=== PATIENT | female | born 1945 | race Caucasian/White ===

== ENCOUNTER 2023-03-27 07:37 | Observation (INO) | payer OTHER ==
[2023-03-22 10:49] LABS: BILIRUBIN,URINE NEGATIVE (Neg); CLARITY,URINE SLIGHTLY CLOUDY (Clear); COLOR,URINE YELLOW (Yellow); GLUCOSE, URINE NEGATIVE (Neg); KETONES,URINE NEGATIVE (Neg); LEUKOCYTE ESTERASE ,URINE TRACE (Neg); NITRITES, URINE NEGATIVE (Neg); OCCULT BLOOD,URINE NEGATIVE (Neg); PH,URINE 5.5 (4.8-8.0); PROTEIN,URINE NEGATIVE (Neg); UROBILINOGEN,URINE 0.2 E.U/dL (0.2-1.0)
[2023-03-22 10:50] LABS: UA COLLECTION TYPE NON-SPECIFIED
[2023-03-22 10:54] LABS: BASOPHILS % (AUTO) 0.5 % (0-1); EOSINOPHILS # (AUTO) 0.1 X10'3 (0-0.9); EOSINOPHILS % (AUTO) 1.3 % (0-6); LYMPHOCYTES # (AUTO) 1.7 X10'3 (1.1-4.8); LYMPHOCYTES % (AUTO) 22.9 % (21-51); MEAN CORPUSCULAR HEMOGLOBIN 31.4 PG (27.0-31.0); MEAN CORPUSCULAR HGB CONC 32.7 g/dL (33.0-36.5); MEAN PLATELET VOLUME 8.2 FL (7.4-10.4); MONOCYTES # (AUTO) 0.7 X10'3 (0-0.9); MONOCYTES % (AUTO) 8.9 % (2-12); NEUTROPHILS # (AUTO) 4.8 X10'3 (1.8-7.7); NEUTROPHILS % (AUTO) 66.4 % (42-75); PRE OP HEMATOCRIT 45.2 % (35.0-45.0); PRE OP HEMOGLOBIN 14.8 g/dL (12.0-16.0); PRE OP PLATELET COUNT 263 X10'3 (140-440); PRE OP WHITE BLOOD COUNT 7.3 10'3 (4.8-10.8); RED BLOOD COUNT 4.71 X10'6 (4.20-5.60); RED CELL DISTRIBUTION WIDTH 14.8 % (11.5-14.5)
[2023-03-22 11:24] LABS: PRE OP PROTIME 10.8 SECONDS (9.0-12.0)
[2023-03-22 11:31] LABS: WBC,URINE 30-50 /HPF (0-4)
[2023-03-22 11:35] LABS: MUCUS STRANDS MANY /LPF (Neg); RBC,URINE 0-2 /HPF (0-2)
[2023-03-22 11:36] LABS: SQUAMOUS EPITHELIAL CELL,UR MANY /LPF (FEW)
[2023-03-22 11:39] LABS: ALBUMIN 3.7 G/DL (3.4-5.0); ALBUMIN/GLOBULIN RATIO 1.1 (1.1-1.5); ALKALINE PHOSPHATASE 63 IU/L (46-116); BLOOD UREA NITROGEN 12 MG/DL (7-18); BUN/CREATININE RATIO 18.5 (10.0-20.0); CALCIUM 9.2 MG/DL (8.5-10.1); CHLORIDE 108 MMOL/L (99-107); CREATININE 0.65 MG/DL (0.40-0.90); PRE OP ALT 37 U/L (30-65); PRE OP ANION GAP 8 (8-16); PRE OP AST 19 U/L (10-37); PRE OP BILIRUB, TOTAL 0.4 MG/DL (0.0-1.0); PRE OP GLUCOSE 99 MG/DL (70-104); PRE OP SODIUM 141 MMOL/L (135-145); TOTAL CARBON DIOXIDE 24.7 MMOL/L (24-32); TOTAL PROTEIN 7.2 G/DL (6.4-8.2); eGFR 88 ML/MIN
[2023-03-22 11:42] LABS: TRANSITIONAL EPI CELLS,URINE FEW /HPF
[2023-03-22 11:43] LABS: CAL OXALATE CRYSTALS FEW /HPF (NEGATIVE); WBC CLUMPS,URINE FEW /HPF (NEGATIVE)
[2023-03-22 11:48] LABS: BACTERIA,URINE 3+ /HPF (Neg)
[~2023-03-27] VITALS: Ht 162.6 cm; Wt 80.6 kg
[2023-03-27] VITALS (26 sets, daily range): BP systolic 98–136; BP diastolic 53–84; PULSE 77–100; RESP 13–18; TEMP 97.3–99.5; O2SAT 2–99
[~2023-03-27 07:37] MED LIST: ACYC200C30 PO; AMLO2.5T5 PO; [UNRECOGNIZED DRUG - OTHER]; cefazolin 2gm/D5W 100mL 100 ML IV ONE; famotidine 20mg tablet PO ONE; ringers solution, lacted 1,000 ML IV SCH; tranexamic acid inj. 1,000 MG in normal saline IV soln 100ML IV ONE
[2023-03-27] MEDS ORDERED: vancomycin 1,000mg inj ONE ×2 (09:54→10:24)
[2023-03-27] MEDS ORDERED: magnesium hydroxide 30ml (MOM) UD suspension PO PRN (10:15)
[2023-03-27] MEDS ORDERED: HYDROcodone/acetaminophen 10/325mg tab PO PRN ×2 (10:15)
[2023-03-27] MEDS ORDERED: diphenhydrAMINE 25mg capsule PO PRN (10:15)
[2023-03-27] MEDS ORDERED: ondansetron/PF 4mg/2ml inj IV PRN ×2 (10:15→11:45)
[2023-03-27] MEDS ORDERED: bisacodyl 10mg suppository rectal RC PRN (10:15)
[2023-03-27] MEDS ORDERED: naloxone 0.4 mg/ml inj IV PRN (10:15)
[2023-03-27] MEDS ORDERED: acetaminophen 325mg tablet PO PRN (10:15)
[2023-03-27] MEDS ORDERED: midazolam 1 mg/ML 2ml injection ONE (10:22)
[2023-03-27] MEDS ORDERED: fentaNYL/PF 50MCG/1 ML 2ML syringe ONE (10:22)
[2023-03-27] MEDS ORDERED: propofol inj 20 ML IV ONE (10:22)
[2023-03-27] MEDS ORDERED: cloNIDine hcl/PF 100mcg/ml inj ONE (10:34)
[2023-03-27] MEDS ORDERED: sevoflurane 250ml liquid IH ONE (10:34)
[2023-03-27] MEDS ORDERED: ePHEDrine 50MG/ML INJ. ONE (10:34)
[2023-03-27] MEDS ORDERED: ringers solution, lacted 1,000 ML IV SCH (11:45)
[2023-03-27] MEDS ORDERED: morphine 2 MG/ML inj. syringe IV PRN (11:45)
[2023-03-27] MEDS ORDERED: meperidine/PF 25mg/ml syringe IV PRN ×3 (11:45)
[2023-03-27] MEDS ORDERED: morphine 4 MG/ML inj SYRINge IV PRN (11:45)
[2023-03-27] MEDS ORDERED: proCHLORperazine 10 MG/2 ml inj IV PRN (11:45)
[2023-03-27] MEDS ORDERED: ROPIVAcaine 0.5% (5mg/ml) 30ml vial ONE (11:47)
[2023-03-27] MEDS ORDERED: gelatin sponge, absorbable (Gelfoam 100) sponge TP ONE (11:47)
[2023-03-27] MEDS ORDERED: dexamethasone sod phosphate 4mg/ml inj. ONE (11:47)
[2023-03-27] MEDS ORDERED: heparin 10,000 units/1 ML INJ ONE (11:55)
[2023-03-27] MEDS ORDERED: ondansetron/PF 4mg/2ml inj ONE (13:12)
[2023-03-27] MEDS ORDERED: sugammadex 200mg/2ml injection IV ONE (13:13)
[2023-03-27] MEDS: cefazolin 2gm/D5W 100mL 100 ML IV SCH (19:42)
[2023-03-27] MEDS: potassium cl 20mEq in 1/2 NS 1,000 ML IV SCH ×2 (19:43→23:35)
[2023-03-28] MEDS: cefazolin 2gm/D5W 100mL 100 ML IV SCH (01:52)
[2023-03-28 02:00] VITALS: BP 105/57; PULSE 82; RESP 15; TEMP 97.7; O2SAT 95
[2023-03-28 06:00] VITALS: BP 103/67; PULSE 87; RESP 15; TEMP 97.9; O2SAT 97
[2023-03-28 07:08] LABS: BASOPHILS % (AUTO) 0.1 % (0-1); EOSINOPHILS % (AUTO) 0 % (0-6); HEMOGLOBIN 11.5 g/dl (12.0-16.0); MEAN CORPUSCULAR HEMOGLOBIN 31.6 PG (27.0-31.0); MEAN CORPUSCULAR HGB CONC 32.9 g/dL (33.0-36.5); MEAN CORPUSCULAR VOLUME 95.9 FL (78-98); MEAN PLATELET VOLUME 8.8 FL (7.4-10.4); MONOCYTES # (AUTO) 1.6 X10'3 (0-0.9); MONOCYTES % (AUTO) 10.6 % (2-12); NEUTROPHILS % (AUTO) 82.3 % (42-75); PLATELET COUNT 213 X10'3 (140-440); RED BLOOD COUNT 3.65 X10'6 (4.20-5.60); RED CELL DISTRIBUTION WIDTH 14.8 % (11.5-14.5); WHITE BLOOD COUNT 14.6 X10'3 (4.5-11.0)
[2023-03-28 07:25] LABS: ANION GAP 11 (8-16); CHLORIDE 106 MMOL/L (99-107); POTASSIUM 4.1 MMOL/L (3.5-5.1); SODIUM 139 MMOL/L (135-145)
[2023-03-28 08:00] VITALS: RESP 15; O2SAT 97
[2023-03-28 10:00] VITALS: BP 113/53; PULSE 88; RESP 16; TEMP 98.6; O2SAT 93
[2023-03-28 10:28] VITALS: RESP 16
[2023-03-28] MEDS ORDERED: HYDR-3965 PO (11:49)
== END 2023-03-28 13:45 | disposition home or self-care (01) ==
LOC: PAS 07:37 → PAS IN 10:19 → ORTHO 4S 16:45
PROVIDERS: ADMIT Specialist; ATTEND Specialist
DX: M19.012 Primary osteoarthritis, left shoulder (principal); M75.112 Incomplete rotator cuff tear or rupture of left shoulder, not specified as traumatic; I10 Essential (primary) hypertension; G47.30 Sleep apnea, unspecified; E66.9 Obesity, unspecified; Z90.710 Acquired absence of both cervix and uterus; Z79.899 Other long term (current) drug therapy
CPT/HCPCS: 23430; 23472; 36415; 73030; 80051; 80053; 81001; 82948; 85025; 85610; 85730; 86885; 86900; 86901; 86920; 87081; 96365; 96366; 97110; 97161; 97530; A6402; C1776; G0378; J0690; J0735; J1100; J1644; J2250; J2405; J2704; J2795; J3010; J3370; J3480; J3490; J7120; A4565; A4618; A6253; A6449; A6455; A7000